=== PATIENT | female | born 1990 | race Caucasian/White ===

== ENCOUNTER → 2017-08-11 | Outpatient (CLI) | payer SELFPAY | LOC: LAB 14:19 | PROVIDERS: ATTEND Nurse Practitioner Family | DX: Z02.0 Encounter for examination for admission to educational institution (principal) | CPT/HCPCS: 36415; 86580; 86706; 86735; 86762; 86765 ==

== ENCOUNTER → 2017-08-25 | Outpatient (CLI) | payer SELFPAY ==
[~2017-08-25] MED LIST: [UNRECOGNIZED DRUG - REMARK] PO
== END ==
LOC: LAB 12:18
PROVIDERS: ATTEND Nurse Practitioner Family
DX: Z02.0 Encounter for examination for admission to educational institution (principal)
CPT/HCPCS: 86580